=== PATIENT | female | born 1960 | race Two or more races ===

== ENCOUNTER 2023-11-22 20:37 | Emergency (ER) | payer OTHER ==
[~2023-11-22] VITALS: Ht 165.1 cm; Wt 70.4 kg
[2023-11-22 21:54] VITALS: BP 136/63; PULSE 82; RESP 16; O2SAT 96
== END 2023-11-23 00:59 | disposition left against medical advice (07) ==
LOC: ER 20:37
DX: M54.2 Cervicalgia (principal); Z53.21 Procedure and treatment not carried out due to patient leaving prior to being seen by health care provider